=== PATIENT | male | born 1985 | race Caucasian/White ===

== ENCOUNTER 2024-08-06 06:55 | Emergency (ER) | payer OTHER, SELFPAY ==
[2024-08-06 07:08] VITALS: BP 130/85; PULSE 108; RESP 16; TEMP 37; O2SAT 95; BMI 32.3
--- OUTSIDE RECORDS SUMMARY | 2024-08-06 07:35 | XMS_ITS ---
Author Name [facility] Address [address] [place] [address] Care Team Providers Care Bolt Header Name Role Phone JUSTICE PATTERSON Primary Care Provider PHOEBE Delgadillo Primary Care Provider Unavail able Insurance Providers: All historical and current Section Date Range: From patient's date of to the date document was created. This section includes the names of all active insurance providers for the patient. Insurance Provider Type of Coverage Plan Name Start of Policy Coverage End of Policy Coverage Group Number Member ID Insurance Provider's Telephone Number Policy Thompson's Name Patient's Relationship to Policy Thompson BS [place] FEP PREFERRED PROVIDER ORGANIZAT ION (PPO) FEP Oct 03, 2008 [id number] [phone] YUVAL CATALAN PATIENT [employer] PRESCRIPT ION WELLP OINT IP ACT FAM Feb 09, 2023 [id number] YUVAL CATALAN PATIENT [employer] PRESCRIPT ION RX Feb 09, 2023 [id number] [phone] YUVAL CATALAN PATIENT [employer] ([id number]) PRESCRIPT ION FEPRX Aug 12, 2010 [id number] ELVIEYUVAL VELÁSQUEZ PATIENT [employer] ([id number]) PRESCRIPT ION GIC Feb 09, 2018 [id number] [phone] YUVAL CATALAN PATIENT [employer] ([id number]) PRESCRIPT ION [facility] Feb 09, 2018 [id number] YUVAL CATALAN [employer] PREFERRED PROVIDER ORGANIZAT ION (PPO) [facility] * Jun 12, 2016 [id number] YUVAL CATALAN PATIENT UNIC[employer]-G. I.C. PREFERRED PROVIDER ORGANIZAT ION (PPO) [facility] N Feb 09, 2018 [id number] YUVAL CATALAN PATIENT [employer] PREFERRED PROVIDER ORGANIZAT ION (PPO) [facility] Feb 09, 2018 [id number] YUVAL CATALAN PATIENT [employer] PREFERRED PROVIDER ORGANIZAT ION (PPO) [employer] Jun 12, 2016 [id number] YUVAL CATALAN PATIENT [employer] PREFERRED PROVIDER ORGANIZAT ION (PPO) [employer] Jun 12, 2016 [id number] [phone] YUVAL CATALAN PATIENT Selected Encounter This section includes the information on record at [place] for the Encounter. Date/Time Encounter Type Encounter Description Reason Pro vider Source Jun 18, 2024 02:21 PM Outpatient Encounter COMMUNITY CARE CONSULT IHE Encounter Template Text not used by [place] Plan of Treatment: Future Appointments (+ 6 months) and Future Tests (+/- 45 days) The Plan of Treatment section includes future care activities for the patient from all [place] treatmentfacilities. This section includes future appointments and future orders which are active, pending or scheduled. Future Appointments This section includes appointments that were scheduled to occur 6 months from the date of the Encounter, up to a maximum of 20 appointments. The data comes from all [place] treatment facilities. Appointment Date/Time Appointment Type Appointme nt Facility Name Jul 21, 2024 09:29 PM AMBULATORY - MEDICINE [facility] Aug 05, 2024 07:05 PM AMBULATORY - MEDICINE [facility] Aug 06, 2024 01:42 AM [facility] - [facility]ICINE [facility] Social History: Smoking Status (Most current) and Tobacco Use (All prior to encounter date) This section includes the most current, and the historical, smoking and tobacco- related health factors from the [place] facility where the Encounter took place. Current Smoking Status This section includes the most current smoking, or tobacco-related health factor, from the [place] facility where the Encounter took place. Date/Time Current Smoking Status Comment [facility] it Aug 29, 2021 09:00 AM VA-TOBACCO NEVER USED [facility] Tobacco Use History This section includes a history of the smoking, or tobacco-related health factors, that were collected on or before the date of the Encounter. The data comes from the [place] facility where the Encounter took place. Date/Time Smoking Status/Tobac co Use Comment [facility] May 06, 2020 11:00 AM VA-TOBACCO DOESNT USE WI 30 MIN WAKEUP [facility] [place] [facility] May 06, 2020 11:00 AM VA-TOBACCO FORMER USER [facility] [place] [facility] May 06, 2020 11:00 AM VA-TOBACCO QUIT 5 TO < 15 YRS [facility] [place] [facility] May 06, 2020 11:00 AM VA-TOBACCO USE > 15 LESS THAN 30 YEARS [facility] [place] [facility] May 06, 2020 11:00 AM VA-TOBACCO USE ADVICE [facility] [place] [facility] May 06, 2020 11:00 AM 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 [employer] NO [facility] [place] [facility] May 06, 2020 11:00 AM VA-TOBACCO USE MED NO [facility] [place] [facility] May 06, 2020 11:00 AM VA-TOBACCO USER SOME DAYS [facility] [place] [facility] May 07, 2018 10:27 AM CURRENT SMOKER starting smoking again since back on unit- 3-4 cigs/day; plans to stop cold turkey when he returns home [facility] [place] [facility] May 07, 2018 10:27 AM V1-PT DECLINES REF TO TOBACCO CESS PRGM [facility] [place] [facility] May 07, 2018 10:27 AM V1-PT DECLINES TOBACCO CESSATION MEDS [facility] [place] [facility] May 07, 2018 10:27 AM V1-PT READY TO QUIT TOBACCO USE [facility] May 07, 2018 10:27 AM V1-QUIT TOBACCO USE > 1 YEAR AGO [facility] May 05, 2018 12:20 PM TOBACCO INPATIENT NO USE 30 DAYS [facility] May 05, 2018 11:58 AM ORYX ADMIT TOBACCO SCREEN NO [facility] May 07, 2017 09:30 AM CURRENT SMOKER 5 A DAY [facility] May 07, 2017 09:30 AM V1-PT DECLINES REF TO TOBACCO CESS PRGM [facility] May 07, 2017 09:30 AM V1-PT THINKING ABOUT QUIT TOBACCO USE [facility] May 07, 2017 09:30 AM V1-TOBACCO CESS MEDS NOT PRESCRIBED I want to go cold turkey [facility] Mar 11, 2017 11:16 AM TOBACCO INPATIENT DECLINES MEDS [facility] May 15, 2016 10:05 AM QUIT TOBACCO USE > 7 YEARS AGO [facility] January 10, 2012 10:11 AM LIFETIME NON-TOBACCO USER [facility] Sep 26, 2010 10:50 AM QUIT TOBACCO USE > 7 YEARS AGO [facility] Sep 26, 2010 10:50 AM QUIT TOBACCO USE 1-7 YEARS AGO 5+ yrs ago [facility] May 16, 2007 09:50 AM QUIT TOBACCO USE IN PAST YEAR quit 2 mos ago-occasional [facility] Encounter Notes: All associated encounter notes This section contains the clinical notes associated to the Encounter. Date/Time Encounter Note(s) Provider Source Jun 18, 2024 02:21 PM NONVA NOTE: LOCAL TITLE: [facility] PRESENTING CARE COORD PLAN STANDARD TITLE: NONVA NOTE DATE OF NOTE: JUN 18, 2024@14:21 ENTRY DATE: JUN 18, 2024@14:21:19 AUTHOR: YAMILETH JAY EXP COSIGNER: URGENCY: STATUS: COMPLETED Emergency Notification Intake Date Presenting to the Facility: Apr Method of Contact: Notified from ECR worklist Notification ID: [id number] [facility] Referral #: [id number] [facility] Name: Hospital: [facility] Address: City: [place] State: [place] Zip Code: Phone : Community Facility Point of Contact: Name: Linda Phone: Chief complaint: ANXIETY Primary Diagnosis: Disposition Discharged Date of discharge: Apr Discharge to Comment: ER Only /radha/ YAMILETH MOCTEZUMA Signed: 06/18/2024 14:22 Receipt Acknowledged By: 06/24/2024 08:42 /radha/ Pat BELLE,RN,CCM TRANSFER/TRAVELING COORDINATOR YAMILETH JAY RUMSEY
--- OUTSIDE RECORDS SUMMARY | 2024-08-06 07:35 | XMS_ITS | Encounter Summary ---
Author Name [facility] [facility] [place] [facility] [place] Address [address] [place] [address] Care Team Providers Care Chili Maker Name Role Phone JUSTICE PATTERSON Primary Care [...] Thompson's Name Patient's Relationship to Policy Thompson BC BS AR FEP PREFERRED PROVIDER ORGANIZAT ION (PPO) FEP Oct 03, 2008 [id number] VIRAJ CATALAN PATIENT CAR[facility] PRESCRIPT ION WELLP OINT IP ACT FAM Feb 09, 2023 [id number] VIRAJ CATALAN PATIENT [employer] PRESCRIPT ION RX Feb 09, 2023 [id number] ELVIEVIRAJ VELÁSQUEZ PATIENT [employer] ([id number]) PRESCRIPT ION FEPRX Aug 12, 2010 [id number] ELVIEVIRAJ VELÁSQUEZ PATIENT [employer] ([id number]) PRESCRIPT ION GIC Feb 09, 2018 [id number] VIRAJ CATALAN PATIENT [employer] ([id number]) PRESCRIPT ION [facility] Feb 09, 2018 [id number] VIRAJ CATALANARE PREFERRED PROVIDER ORGANIZAT ION (PPO) [facility] * Jun 12, 2016 [id number] [phone] VIRAJ CATALAN PATIENT [employer]. I.C. PREFERRED PROVIDER ORGANIZAT ION (PPO) CARL[facility] N Feb 09, 2018 [id number] VIRAJ CATALAN PATIENT WE[employer] PREFERRED PROVIDER ORGANIZAT ION (PPO) [facility] N Feb 09, 2018 [id number] VIRAJ CATALAN [employer] PREFERRED PROVIDER ORGANIZAT ION (PPO) WE[facility] [employer]INT Jun 12, 2016 [id number] VIRAJ CATALAN PATIENT WE[employer]POINT PREFERRED PROVIDER ORGANIZAT ION (PPO) WE[employer]INT Jun 12, 2016 [id number] [phone] VIRAJ CATALAN PATIENT Selected Encounter This section includes the information on record at [place] for the Encounter. Date/Time Encounter Type Encounter Description Reason Provider Source Jul 21, 2024 09:29 PM EMERGENCY DEPT VISIT MOD [facility] EMERGENCY DEPT ICD-10-CM M25.561 Pain in right knee DIRK VERDIN [facility] Encounter Template Text not used by [place] Assessments - Encounter Diagnoses This section includes the primary and secondary diagnoses documented for the Encounter. Date/Time Primary/Secondary Diagnosis Diagnosis Name Provider Source Jul 21, 2024 10:53 PM PRIMARY Pain in right knee DIRK VERDIN [facility] Plan of Treatment: Future Appointments (+ 6 months) and Future Tests (+/- 45 days) The Plan of Treatment section includes future care activities for the patient from all [place] treatmentfacilities. This section includes future appointments and future orders which are active, pending or scheduled. Future Appointments This section includes appointments that were scheduled to occur 6 months from the date of the Encounter, up to a maximum of 20 appointments. The data comes from all [facility]. Appointment Date/Time Appointment Type Appointme nt Facility Name Aug 05, 2024 07:05 PM AMBULATORY - MEDICINE RAGINI TORRES [facility] Aug 06, 2024 01:42 AM [facility] Active, Pending, and Scheduled Orders This section includes a listing of several types of active, pending, and scheduled orders, including clinic medications orders, diagnostic test orders, procedure orders and consult orders; where the start date of the order is 45 days before the date of the Encounter or 45 days after the date of theEncounter. The data comes from all [facility]. Test Date/Time Test Type Test Details Facility Name Aug 06, 2024 02:18 AM Pharmacy - Clinic Medication Order WILIAN R[facility] Vital Signs: All taken on the encounter date This section contains inpatient and outpatient Vital Signs collected on the date of the Encounter. Date/Time Temperature Pulse Blood Pressure Respiratory Rate SP02 Pain Height Weight Body Mass Index Source Jul 21, 2024 09:41 PM 97.9 104 146/94 14 10 [facility] Encounter Notes: All associated encounter notes This section contains the clinical notes associated to the Encounter. Date/Time Encounter Note(s) Provider Source Jul 21, 2024 10:54 PM NURSING EMERGENCY DEPARTMENT DISCHARGE NOTE: LOCAL TITLE: NURSING PHASE IV MEDICAL ER DISCHARGE NOTE (GT) STANDARD TITLE: NURSING EMERGENCY DEPARTMENT DISCHARGE NOTE DATE OF NOTE: JUL 21, 2024@22:54 ENTRY DATE: JUL 21, 2024@22:54:42 AUTHOR: CAILIN NEVILLE EXP COSIGNER: URGENCY: STATUS: COMPLETED Discharge Date and time: Jul@22:54 Discharged to: Home PATIENT EDUCATION: Education Provided to: Readiness/Motiviation to Learn: Patient Education-Preference for Style of Learning: Barriers to Learning: Language Preferred: Response to Education: (Did Learner understand instruction as evidence by: Ability to repeat significant material: Comment: Ability to ask pertinent questions: Comment: Was education interactive? Comment: Ability to demonstrate skills learned: Comment: Patient/significant other understood instructions: Information provided/handouts provided (List all): Further information needed: Education about medications: Yes Discharge Instructions Given: Yes Patient verbalized understanding of discharge instructions: Yes Clear on responsibilities for ongoing care needs: Yes All IV access devices removed: N/A W-10 sent with patient, if applicable: N/A Patient wristband was removed and destroyed by placing in a secured and locked Personal Health Information (PHI) receptacle for shredding. /emmanuelle NEVILLE RN REGISTERED NURSE Signed: 07/21/2024 22:55 CAILIN NEVILLE [facility] Jul 21, 2024 10:52 PM NURSING NOTE: LOCAL TITLE: NURSING NOTE STANDARD TITLE: NURSING NOTE DATE OF NOTE: JUL 21, 2024@22:52 ENTRY DATE: JUL 21, 2024@22:52:35 AUTHOR: CAILIN NEVILLE EXP COSIGNER: URGENCY: STATUS: COMPLETED 2250: Patient ready for discharge. NO PIV in place, ID band removed. Discharge instuctions and outpatient medications provided. /emmanuelle NEVILLE RN REGISTERED NURSE Signed: 07/21/2024 22:54 JAMINCAILIN [facility] Jul 21, 2024 10:37 PM EMERGENCY DEPT DIS CHARGE NOTE: LOCAL TITLE: EMERGENCY DEPARTMENT/URGENT CARE DISCHARGE INSTRUCT STANDARD TITLE: EMERGENCY DEPT DISCHARGE NOTE DATE OF NOTE: JUL 21, 2024@22:37 ENTRY DATE: JUL 21, 2024@22:38:24 AUTHOR: DIRK VERDIN EXP COSIGNER: URGENCY: STATUS: COMPLETED Emergency Department Discharge Instructions For: Viraj Catalan ON JUL 21, 2024 Diet Resume your usual diet. Activities Normal activities as tolerated. Medications Active Outpatient Medications (excluding Supplies): Active Outpatient Medications Status 1) OXYCODONE HCL 5MG TABLET TAKE ONE OR TWO TABLETS(5MG OR ACTIVE 10MG) BY MOUTH EVERY 8 HOURS NEEDED *THESE ARE SHORT ACTING TABS* Indication: FOR PAIN Active Non-VA Medications Status 1) Non-VA PRAZOSIN HCL 1MG CAP 3MG MOUTH AT BEDTIME ACTIVE 2 Total Medications Continue all of your medications a prescribed. A list of your current active medications can be provided. Additional Instructions Return to this or a local emergency department if any significant new symptoms of concern develop. CALL 911 FOR: Chest pain, Loss of consciousness, Sudden shortness of breath Contact your medical provider or return if: Fever 101.5 or higher,Dizziness or light-headedness Nausea, vomiting, diarrhea, or no bowel movement for more than 48 hrs Changes in behavior If your current problem persists for more than 48hrs New onset headache Redness, discharge, warm to the touch or foul smelling discharge from wound Additional follow up: Preprinted Instruction Sheet Follow up We recommend a follow up visit for recheck in 3-5 days. Primary Care Urgent Visit: Contact the Call Center today at [phone] for an appointment with PCMM Primary Provider: PCMM Team: Or Return to the Triage Clinic open Saturday through Saturday 8:30 a.m. to 4:30 p.m. (No appointment is necessary). No data available If you have received sedating medications such as narcotic pain killers, anxiety medications, certain anti-vomiting and anti-allergy medications, you should not drive or operate machinery or appliances for several hours after your last dose. Your doctor today Diagnosis: Chronic pain right knee, history of ACL tear, meniscus tear [facility] SEDATION: Patient did not receive sedation during his/her procedure DIRK VERDIN [facility] Jul 21, 2024 10:12 PM ACCOUNTING OF DISC LOSURES NOTE: LOCAL TITLE: STATE PRESCRIPTION DRUG MONITORING PROGRAM STANDARD TITLE: ACCOUNTING OF DISCLOSURES NOTE DATE OF NOTE: JUL 21, 2024@22:12:43 ENTRY DATE: JUL 21, 2024@22:12:43 AUTHOR: DIRK VERDIN EXP COSIGNER: URGENCY: STATUS: COMPLETED This PDMP query was submitted by Dirk Verdin MD. The clinical justification for this PDMP query is to review controlled substances prescribed outside of the [facility], and any additional information that may become available, as an important component of standard clinical care, and in accordance with [facility] policy. Patient information was shared with the PDMP [place]. Prescription(s) filled outside the [facility] in the last 90 days are noted. Safety concerns will be discussed with the patient and documented as part of ongoing treatment planning. Discussed with patient the potential for abuse, and patient claims that he is following up with surgery next , and has had to increase his dose due to recent injury. Patient was prescribed a limited amount, and encouraged to follow-up prompt /radha/ DIRK VERDIN MD Signed: 07/21/2024 22:13 DIRK VERDIN [facility] Jul 21, 2024 09:38 PM EMERGENCY DEPT TRI AGE NOTE: LOCAL TITLE: EMERGENCY DEPT TRIAGE NOTE STANDARD TITLE: EMERGENCY DEPT TRIAGE NOTE DATE OF NOTE: JUL 21, 2024@21:38 ENTRY DATE: JUL 21, 2024@21:38:45 AUTHOR: CAILIN NEVILLE EXP COSIGNER: URGENCY: STATUS: COMPLETED Emergency Department/Urgent Care Center Triage Patient age:39 Sex: MALE On arrival patient was: AMBULATORY Patient phone number: PATIENT PHONE Allergies: Patient has answered NKA Subjective/Chief Complaint: right knee pain Objective: Patient c/o re-injury to RIGHT knee. Patient states he was at a holiday democr[place] and a child jumped on his knee. Patient states he has surgery scheduled in [place] for affected knee. Patient states knee is swollen and painful to touch. Patient denies falls KINDER 1 Fall Risk Screen If any of the below answers are YES, patient is deemed HIGH FALL RISK Presented to Emergency Department because of falls? No Age greater than 70? No Altered mental status? -- No Impaired mobility? -- No Nurse Judgment: -- The patient is not a fall risk. Vital Signs * Temperature 97.9 F (36.6 C) Pulse 104 Respirations 14 Blood Pressure 146/94 Pain scale recorded: 10 Pulse Oximetry 97 Room Air Emergency Severity Index (ERNESTO) level Level 4 Current Medications: Active Outpatient Medications (excluding Supplies): Active Non-VA Medications Status 1) Non-VA PRAZOSIN HCL 1MG CAP 3MG MOUTH AT BEDTIME ACTIVE Current Problems: ACTIVE PROBLEMS Suicide Screen: The patient was unable to answer. Comment: C-SSSR completed and negative Are two or more of the following present in addition to a suspected source of infection? Respirations greater than or equal to 22 breaths per minute Altered mental status Systolic Blood Pressure less than or equal to 100 mm Hg No-Sepsis Screen is negative /radha/ CAILIN NEVILLE RN REGISTERED NURSE Signed: 07/21/2024 21:47 CAILIN NEVILLE [facility] Jul 21, 2024 09:35 PM ATTENDING EMERGENC Y DEPT NOTE: LOCAL TITLE: EMERGENCY DEPARTMENT/URGENT CARE ATTENDING EVALUATI STANDARD TITLE: ATTENDING EMERGENCY DEPT NOTE DATE OF NOTE: JUL 21, 2024@21:35 ENTRY DATE: JUL 21, 2024@21:35:45 AUTHOR: DIRK VERDIN COSIGNER: URGENCY: STATUS: COMPLETED Viraj Catalan is a 39 year old MALE who presents for evaluation of: Right knee pain COMES TO ED VIA ambulatory 9 hrs., seen by me at 2136 hrs. CC: Patient c/o re-injury to RIGHT knee. Patient states he was at a holiday democr[place] and a child jumped on his knee. Patient states he has surgery scheduled in [place] for affected knee. Patient states knee is swollen and painful to touch. 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 Patient states that he has had multiple MRIs which have reflected that he has an ACL tear and meniscus tear. He also thinks that he had a lateral collateral ligament tear. Patient is walking with crutches. 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 Patient has been taking narcotics x 1-1/2 years. Patient states he is scheduled in [place] to have surgery next week. Patient lives in [facility], and is visiting family in [facility] [place] [facility]. Patient states that he was at a holiday democrat on Saturday, when his 6-year-old son jumped onto his knee and aggravated his right knee pain. Patient was regularly prescribed oxycodone states that he increased his dose and has run out of oxycodone. Patient is requesting a medication refill. Patient denies any fever, cough, nausea, vomiting, diarrhea, burning on urination or any acute rash. ROS: General:( - )fatigue/ malaise/( - ) fever Head:( -) headaches ( - ) head congestion Eye: (- ) visual problems Ears: ( - ) ear pain Throat:( - ) sore throat Lungs:( - ) cough ( - ) shortness of breath Heart: ( - ) chest pain ( - ) palpitations Abdomen:( - ) abdominal pain ( - ) n,v,d Urologic:( - ) dysuria Back: ( - ) pain Extremities: ( + ) edema or pain Neurologic: ( - ) paresthesia or weakness Hematologic: ( - ) excessive bruising or bleeding Skin:( - ) new rash or lesions Endocrine: ( - )thyroid ( - )diabetes Psychiatric:( - ) depression or anxiety SH: Patient denies smoking, drinking or using any illegal drugs. Patient states he is , has 2 children. Patient works for [employer] in [place]. 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 Patient deployed to [employer] [facility] in 2001, [employer] in 2008. 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 PMH : Code Description E66.8 Obesity ([facility] [id number]) G44.329 Chronic post-traumatic headache ([facility] [id number]) MEDS: Active Outpatient Medications (excluding Supplies): Active Non-VA Medications Status 1) Non-VA PRAZOSIN HCL 1MG CAP 3MG MOUTH AT BEDTIME ACTIVE ALLERGIES Patient has answered NKA PHYSICAL EXAM Vital Signs * Temperature 97.9 F (36.6 C) Pulse 104 Respirations 14 Blood Pressure 146/94 Pain scale recorded: 10 Pulse Oximetry 97 Room Air GEN APPEARANCE Well Developed, appropriate for Age, comfortable HEENT Non Traumatic, Normal Cephalic, No Adenapathy, Mucous Membranes moist NECK No Meingismus, Midline Trachea, no JVD, No Significant Adenapathy LUNGS Clear to Auscultation, no Rales, no Rhonchi, no wheezes CARD S1 S2 Regular rythem and rate, no murmurs ABD Soft, Non Tender, No masses, no organomegally, normal bowel sounds, no CVAT EXT patient's right knee is swollen as compared to the left, knee is not warm to palpation. NEURO No focal neuro deficits, alert and oriented to person place and time, normal pleasant social interaction LAB RESULTS PDMP query was performed, patient has extensive prescriptions for narcotics. Patient is credibly describing increased pain secondary to minor injury, and states that he is scheduled for appointment in 1 week. Patient is visiting family in [place], and patient is originally from [place]. Patient is requesting 30 tablets of 10 mg oxycodones. In consultation with pharmacy I prescribed 30 tablets of 5 mg oxycodones and encourage patient to follow-up with PCP. Patient describes withdrawal symptoms if he does not take narcotics. I explained to patient that he is developing a tolerance and dependence on narcotic analgesics. Patient states he will follow-up promptly with his orthopedic surgeon in [place]. IMPRESSION: Right knee pain chronic DISPOSITON: Discharged home CONDITION ON DISPOSITION : Improved /es/ DIRK VERDIN MD Signed: 07/21/2024 23:43 DIRK VERDIN [facility]
--- OUTSIDE RECORDS SUMMARY | 2024-08-06 07:36 | XMS_ITS | Encounter Summary ---
Author Name [facility] [place] [facility] [place] [facility] [place] Address [address] [place] [address] Care Team Providers Care Consular Officer Name Role Phone JUSTICE PATTERSON Primary Care [...] ION (PPO) FEP Oct 03, 2008 [id number] [phone] YUVAL CATALAN PATIENT CAREMARK PRESCRIPT ION WELLP OINT IP ACT FAM Feb 09, 2023 [id number] YUVAL CATALAN PATIENT CAREMARK PRESCRIPT ION RX Feb 09, 2023 [id number] [phone] YUVAL CATALAN PATIENT CAREMARK ([id number]) PRESCRIPT ION FEPRX Aug 12, 2010 [id number] [phone] ELVIEYUVAL VELÁSQUEZ PATIENT [facility] ([id number]) PRESCRIPT ION GIC Feb 09, 2018 [id number] [phone] YUVAL CATALAN PATIENT [facility] ([id number]) PRESCRIPT ION [facility] Feb 09, 2018 [id number] YUVAL CATALANARE PREFERRED PROVIDER ORGANIZAT ION (PPO) [facility] * Jun 12, 2016 [id number] [phone] YUVAL CATALAN PATIENT [facility]-G. I.C. PREFERRED PROVIDER ORGANIZAT ION (PPO) [facility] N Feb 09, 2018 [id number] YUVAL CATALAN PATIENT WELLPOINT PREFERRED PROVIDER ORGANIZAT ION (PPO) [facility] N Feb 09, 2018 [id number] [phone] YUVAL CATALAN PATIENT WELLPOINT PREFERRED PROVIDER ORGANIZAT ION (PPO) WELLP OINT Jun 12, 2016 [id number] [phone] YUVAL CATALAN PATIENT WELLPOINT PREFERRED PROVIDER ORGANIZAT ION (PPO) WELLP OINT Jun 12, 2016 [id number] [phone] YUVAL CATALAN PATIENT Selected Encounter This section includes the information on record at [place] for the Encounter. Date/Time Encounter Type Encounter Description Reason Provider Source Aug 05, 2024 07:05 PM EMERGENCY DEPT VISIT [facility] EMERGENCY DEPT ICD-10-CM M25.561 Pain in right knee MIGUEL ANGEL YEE [facility] Encounter Template Text not used by [place] Assessments - Encounter Diagnoses This section includes the primary and secondary diagnoses documented for the Encounter. Date/Time Primary/Secondary Diagnosis Diagnosis Name Provider Source Aug 05, 2024 09:17 PM PRIMARY Pain in right knee MIGUEL ANGEL YEE [facility] Plan of Treatment: Future Appointments (+ 6 months) and Future Tests (+/- 45 days) The Plan of Treatment section includes future care activities for the patient from all [facility] treatmentfacilities. This section includes future appointments and future orders which are active, pending or scheduled. Future Appointments This section includes appointments that were scheduled to occur 6 months from the date of the Encounter, up to a maximum of 20 appointments. The data comes from all [facility]. Appointment Date/Time Appointment Type Appointme nt Facility Name Aug 06, 2024 01:42 AM AMBULATORY - MEDICINE [facility] Active, Pending, and Scheduled Orders This section includes a listing of several types of active, pending, and scheduled orders, including clinic medications orders, diagnostic test orders, procedure orders and consult orders; where the start date of the order is 45 days before the date of the Encounter or 45 days after the date of theEncounter. The data comes from all [facility]. Test Date/Time Test Type Test Details Facility Name Aug 06, 2024 02:18 AM Pharmacy - Clinic Medication Order [facility] Vital Signs: All taken on the encounter date This section contains inpatient and outpatient Vital Signs collected on the date of the Encounter. Date/Time Temperature Pulse Blood Pressure Respiratory Rate SP02 Pain Height Weight Body Mass Index Source Aug 05, 2024 09:01 PM 101 131/88 16 96 10 [facility] Aug 05, 2024 08:03 PM 10 [facility] Aug 05, 2024 07:31 PM 10 [facility] Aug 05, 2024 07:23 PM 97.1 111 151/98 16 97 10 [facility] Encounter Notes: All associated encounter notes This section contains the clinical notes associated to the Encounter. Date/Time Encounter Note(s) Provider Source Aug 05, 2024 08:41 PM EMERGENCY DEPT DIS CHARGE NOTE: LOCAL TITLE: Emergency Dept Discharge Instructions STANDARD TITLE: EMERGENCY DEPT DISCHARGE NOTE DATE OF NOTE: AUG 05, 2024@20:41 ENTRY DATE: AUG 05, 2024@20:41:33 AUTHOR: RADHA YEE EXP COSIGNER: URGENCY: STATUS: COMPLETED DISCHARGE INSTRUCTIONS FOR: MR. YUVAL CATALAN [address] [place], [place] [address] AUG 05, 2024 YOUR DIAGNOSIS: Chronic knee pain and chronic oxycodone use TREATMENT YOU RECEIVED IN THE EMERGENCY DEPARTMENT: You are given ibuprofen RESULTS: The PDMP was reviewed. It looks like you have been receiving your 10 mg oxycodones at the [facility] pharmacy in [facility]. He received 84 tablets on July 24 and 63 tablets on July 03. He also had an ER visit on July 21 at which time he received 30 of the 5 mg oxycodone tablet TREATMENT INSTRUCTIONS UPON DISCHARGE FROM THE EMERGENCY DEPARTMENT, INCLUDING INSTRUCTIONS FOR MEDICATIONS: Ibuprofen 800 mg up to every 8 hours. Famotidine 20 mg twice a day You are being prescribed a total of 4 oxycodone 5 mg tablets. These are primarily being given to make sure you do not go into withdrawal as well as to manage your pain. It is felt by this provider that you need to talk to your doctors about getting off opiates for chronic pain. You also need to have the surgery done as soon as possible. It is strongly recommended that you contact your prescribing providers and your orthopedic surgeon tomorrow August 06 ACTIVE MEDICATIONS: Active Outpatient Medications (excluding Supplies): Pending Outpatient Medications Status = 1) FAMOTIDINE 20MG TAB TAKE ONE TABLET BY MOUTH TWICE A DAY PENDING Indication: FOR GASTROESOPHAGEAL REFLUX DISEASE 2) IBUPROFEN 800MG TAB TAKE ONE TABLET BY MOUTH THREE TIMES PENDING DAILY NEEDED Indication: FOR PAIN 3) OXYCODONE 5MG TAB TAKE ONE TABLET BY MOUTH THREE TIMES DAILY PENDING NEEDED Indication: FOR PAIN INSTRUCTIONS FOR FOLLOW UP: As above A copy of these instructions was given to the patient and/or caregiver. The instructions were reviewed with the patient and/or caregiver. The patient and/or caregiver showed understanding of the instructions before discharge from the Emergency Department. TREATING PHYSICIAN: RADHA YEE MD EMERGENCY DEPARTMENT BUSINESS LEADER SCHEDULED FUTURE APPOINTMENTS: No Future Appointment During normal business hours Saturday-Saturday 8-4 PM: If you have any problems, your contact lens fitter or a doctor can be reached by calling the telephone advice line at: (p) [phone], ext. [phone] Toll-free (P) [phone] ext. [phone] If you are a in crisis, free confidential support is available 04/03. To access, call the [employer] Crisis Line by dialing 362 and press 1. You may also text [phone] or start an online chat session at [email or web address] Crisis support for the deaf and hard of hearing can be reached by using your preferred relay service or dial 319 then 848. /es/ RADHA YEE MD EMERGENCY DEPARTMENT BUSINESS LEADER Signed: 08/05/2024 20:44 RADHA YEE [facility] Aug 05, 2024 08:13 PM EMERGENCY DEPT NOT E: LOCAL TITLE: ED MD Note/Emergency Department Physician Note STANDARD TITLE: EMERGENCY DEPT NOTE DATE OF NOTE: AUG 05, 2024@20:13 ENTRY DATE: AUG 05, 2024@20:13:14 AUTHOR: RADHA YEE EXP COSIGNER: URGENCY: STATUS: COMPLETED ED MD Note/Emergency Department Physician Note Has ADDENDA AUG 05, 2024 YUVAL CATALAN is a 39 year old presents with hopes of having his narcotic prescription refilled for management of his right knee pain. Patient states he injured his right knee while working for the [employer] about a year and a half ago when he fell and twisted the knee. He states has had multiple MRIs that show an ACL and meniscal injury. Patient states has been seen by orthopedic senior clinical consultant who is recommended surgical correction. Patient tells me that this does not happen due to a disagreement between Workmen's Comp. and his third-constitution party insurance who will pay for this. Patient is now involved a director of primary care. In the meantime he has managed his pain with narcotics. He states he has been taking oxycodone 10 mg 3 times a day. Patient is currently visiting family and is run out of his narcotics.. He states that he decided he did not need his rest of his narcotics and threw them away. Patient states that since he has not been taking his oxycodone over the last 24 hours he is developed severe pain in the right knee. States is unable to take Tylenol and has not taken NSAIDs. Presents here with hopes of having a refill on his narcotic prescription until he can be seen by his orthopedist next Saturday, 5 days from now. Patient denies any recent fall or trauma in the last 2 weeks PAST MEDICAL HISTORY Problem List - Active - NONE FOUND PAST SURGICAL HISTORY MEDICATIONS Active Outpatient Medications (excluding Supplies): No Medications Found ALLERGIES TYLENOL AUG 05, 2024 (historical) Symptoms: ANAPHYLAXIS ROS No fevers. VITALS BP: 151/98 (08/05/2024 19:23) Pulse: 111 (08/05/2024 19:23) Temp: 97.1 F [36.2 C] (08/05/2024 19:23) Resp: 16 (08/05/2024 19:23) HT(in): WT(lbs): 08/05/24 @ 1923 PULSE OXIMETRY: 97 Vital Signs:I have reviewed the vital signs General -alert oriented no distress. Patient presents alone Head: atraumatic, normocephalic. Eyes: Pupils equally round and reactive. Extra ocular muscles intact. Sclera white. No nystagmus. MSK -patient is unable to put his right knee through full range of motion with limited flexion extension. There are some mild diffuse swelling about the right knee. No tenderness over the thigh or distal to the knee. Vascular: 2+ dorsalis pulse. Cap refill less than 2 seconds neuro -alert and oriented x3. Skin - no rash Psych - appropriate mood and affect MANAGEMENT COURSE IN THE ED -Patient examined and assessed by me -Vital signs reviewed Patient did not have any records available on [facility] as this is his first visit to [place]. I was able to look up his records in senior living [facility]. I also was able to look up the patient's records through the PDMP. Looks like he was prescribed 8410 mg tablets of oxycodone through the [facility] in [facility] on 24 July. He had 35 mg tablets prescribed through the the [facility] on 07/21. MEDICAL DECISION MAKIN-year-old gentleman history of knee injury over a year ago with apparent underlying meniscal and ligamentous injury to his right knee has been managed with narcotics for the last year. Tells me that an orthopedic surgeon in [place] wants to surgically repair his injury but this been a problem with insurance. I was able to with the help of a colleague to look through the PDMP as well as senior living [facility]. Patient has been receiving large doses of narcotics. Looks like on 24 July he received 8410 mg tablets from [facility] in [facility]. Prior to that on July 03 he received 6310 mg oxycodone tablets at the same pharmacy. And on July 21 he presented to the [facility] ED after minor knee trauma and received additional 30 tablets of 5 mg oxycodone. Patient states while visiting family up here and drinking too many egg nuggets he had a moment of poor judgment and threw away his remaining oxycodone that would have gotten through the rest the week. Is now [place] evening. I cannot reach out to the patient's providers in [place]. Initially I was inclined not to prescribe him any narcotics. Patient states that he has been taking narcotics for better part of a year and that he is on certainly going withdrawal. Although does not show any outward signs of withdrawal and can see that this is a possibility. For this reason I am prescribing a total of 4 oxycodone 5 mg tablets. Patient's to follow-up with his prescribers and orthopedic surgeon tomorrow. Additionally, I will prescribe ibuprofen 800 mg every 8 hours. Patient states he is run out of his prescription for famotidine and will be sent home with 2-week supply famotidine as well. DIAGNOSIS: 1. Chronic right knee pain 2. Chronic opiate pain medications for right knee pain The following note has been dictated using [employer] Naturally Speaking. It has been proofread, but there may be errors due to the dictations software. PERSONAL PROTECTIVE EQUIPMENT (PPE): This provider used appropriate PPE during every encounter with the patient. /radha/ RADHA YEE MD EMERGENCY DEPARTMENT BUSINESS LEADER Signed: 08/05/2024 20:41 08/06/2024 ADDENDUM STATUS: COMPLETED 238- This RN received call from pharmacist (Federico) at [facility] stating that pt had presented to [facility] ED for CC of right knee pain and requesting Oxycodone. Rsihabh Caballero states that when he and the [facility] ED MD reviewed the patient's chart and saw that pt had been given Rx Oxycodone at the [facility] ED they informed the pt that he would not be getting more Oxycodone to which the pt reported to Pharmacist that he left [facility] AMA and did not get any medications before leaving. This RN confirmed that pt did receive d/c instructions as well as discharge medications, including Oxycodone. Rishabh Caballero thanks this author and call ended at this time. 304- This RN received second call from Rishabh Caballero from [facility]. Rishabh Caballero states pt now reports that he threw the medication bag at this RN and left the [facility] ED without medications. This RN reviewed with Rishabh Caballero that as per this RN's note pt received discharge instructions and medications and ambulated from ED wishing this RN a Jael West. Rishabh Caballero thanks this author and call ended at this time. /radha/ JF ALDANA registered nurse Signed: 08/06/2024 03:17 RADHA YEE [facility] Aug 05, 2024 08:02 PM NURSING EMERGENCY DEPT NOTE: LOCAL TITLE: ED RN NOTE/EMERGENCY DEPARTMENT NOTE STANDARD TITLE: NURSING EMERGENCY DEPT NOTE DATE OF NOTE: AUG 05, 2024@20:02 ENTRY DATE: AUG 05, 2024@20:02:52 AUTHOR: JF ALDANA EXP COSIGNER: URGENCY: STATUS: COMPLETED Full ED Note Documentation System Review: * Falls Patient greater than 70 years old? No *Pain Assessment Pain Details: Level of pain: 10 Location of pain: knee Pain Description: Medications received: Response to meds: Other therapies utilized to relieve pain: rest, positioning Comment: Effectiveness: Pt denies pain improving with rest and positioning Neurological: Alert: Yes Oriented to: person: Yes place: time: Yes situation: Yes Extremities: Normal/Warm/Dry: Yes List all injuries, including location, severity and interventions: Pt ambulates independently, without crutch, in ED room 3. Pt ambulates longer distances with single crutch. Pt presents to ED for 1.5 years of right knee pain that is worse recently- pt denies known trauma. Pt ambulates with single crutch. Pt reports that he has pain medication but doesn't like taking it but also can't afford to have surgery on the knee. Pt declines offer for ice pack. 1919- Dewey Yee ED in pt room speaking with pt. 1944- MD Yee in pt room speaking with pt. 1952- 800mg Ibuprofen given to pt per ED MD order; see BCMA. Pt reports pain level 10/10. 1999- Pt declines to wait in ED. Pt ambulates out to parking lot stating he needs fresh air. ED MD Yee present at time of pt stating this and exiting. 2024- Pt ambulates back in to ED entrance with crutch. Pt speaking with MD Yee. 2029- Pt declines to wait in ED, declines repeat VS. Pt ambulates out to ED parking lot with crutch. ED MD made aware of pt exiting building by this RN. 2099- Pt ambulates with crutch back into ED. Pt ambulates into ED room 1; declines to go back to room 3. D/C instructions reviewed with pt by this RN; pt verbalizes understanding to all instructions. Pt verbalizes that something in the discharge paperwork isn't right. Pt declines to speak to this RN about his concern. Pt requesting to speak with MD Yee however MD Yee gone for the night. This RN offered to have incoming MD speak with pt; pt agrees. 2104- ED MD Jairon Avilez in pt room speaking with pt. 2114- Pt given information to reach patient advocate by MD Avilez. 2119- Pt given d/c medications from pharmacy. Pt ambulates from ED with all personal belongings, d/c instructions and d/c medications. /radha/ JF ALDANA registered nurse Signed: 08/05/2024 21:[address] 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 Reports 12/10 pain that has been getting worse throughout the day. 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 Pt had an accident at work about 1.5 years ago and his workers comp will not cover it, nor will his insurance. Denies reinjury or trauma recently and Reports that the pain is because he hasn't taken his pain meds (Last does of oxy and muscle relaxer was taken at noon today). Pt states that he has been trying not to take his meds because he doesn't like to take them . VSS. Pt does not appear to be in any distress- pt ambulated with one crutch to bed 3. Level of Consciousness (AVPU): Alert = Appears aware of and responsive to the environment on their own. Follows commands, opens eyes spontaneously, and tracks objects. Vital Signs: Vital signs previously recorded this visit: DATE/TIME TEMP PULSE RESP BP PAIN WEIGHT 08/05/24 @ 1923 97.1 111 16 151/98 10 Pain: DVPRS Scale Location: Right knee Defense and Veterans Pain Rating Scale (DVPRS): 10 As bad as it can be, nothing else matters Pain Score: 10 Patient's acceptable pain goal: Suicide Screen: [place] Suicide Severity Rating Scale (C-SSRS) screener 1. Over the past month, have you wished you were or wished you could go to sleep and not wake up? No 2. Over the past month, have you had any actual thoughts of killing yourself? No 3. Over the past month, have you been thinking about how you might do this? Response not required due to responses to other questions. 4. Over the past month, have you had these thoughts and had some intention of acting on them? Response not required due to responses to other questions. 5. Over the past month, have you started to work out or worked out the details of how to kill yourself? Response not required due to responses to other questions. 6. If yes, at any time in the past month did you intend to carry out this plan? Response not required due to responses to other questions. 7. In your lifetime, have you ever done anything, started to do anything, or prepared to do anything to end your life (for example, collected pills, obtained a gun, gave away valuables, went to the roof but didn't jump)? No 8. If YES, was this within the past 3 months? Response not required due to responses to other questions. Emergency Severity Index (ERNESTO) level: Level 3 Previously documented allergies: No Allergy Assessment Current Problems: No Active Problems on record /es/ JETT JUARES Registered Nurse Signed: 08/05/2024 19:41 JETT JUARES [facility]
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
--- OUTSIDE RECORDS SUMMARY | 2024-08-06 07:37 | XMS_ITS | Encounter Summary ---
Author Name [facility] [place] [place] [facility] [place] Address [address] [place] [address] Care Team Providers Care Brick Tender Name Role Phone JUSTICE PATTERSON Primary Care [...] ION (PPO) FEP Oct 03, 2008 [id number] YUVAL CATALAN PATIENT CAREMARK PRESCRIPT ION RX Feb 09, 2023 [id number] YUVAL CATALAN CAR[facility]ARK PRESCRIPT ION WELLP OINT IP ACT FAM Feb 09, 2023 [id number] [phone] YUVAL CATALAN PATIENT CAREMARK ([id number]) PRESCRIPT ION FEPRX Aug 12, 2010 [id number] YUVAL CATALAN PATIENT [facility] ([id number]) PRESCRIPT ION GIC Feb 09, 2018 [id number] YUVAL CATALAN PATIENT [facility] ([id number]) PRESCRIPT ION [facility] Feb 09, 2018 [id number] YUVAL CATALAN PATIENT [employer] PREFERRED PROVIDER ORGANIZAT ION (PPO) [facility] * Jun 12, 2016 [id number] YUVAL CATALAN PATIENT [facility]-G. I.C. PREFERRED PROVIDER ORGANIZAT ION (PPO) [facility] IN[facility] N Feb 09, 2018 [id number] [id number] YUVAL CATALAN PATIENT WE[facility]POINT PREFERRED PROVIDER ORGANIZAT ION (PPO) [facility] IN[facility] N Feb 09, 2018 [id number] YUVAL CATALAN PATIENT WELLPOINT PREFERRED PROVIDER ORGANIZAT ION (PPO) [facility] Jun 12, 2016 [id number] [phone] YUVAL CATALAN PATIENT WELLPOINT PREFERRED PROVIDER ORGANIZAT ION (PPO) [facility] Jun 12, 2016 [id number] YUVAL CATLAAN PATIENT Selected Encounter This section includes the information on record at [place] for the Encounter. Date/Time Encounter Type Encounter Description Reason Provider Source Aug 06, 2024 02:14 AM Outpatient Encounter EVENT (HISTORICAL) ROSSY DURHAM Encounter Template Text not used by [place] Plan of Treatment: Future Appointments (+ 6 months) and Future Tests (+/- 45 days) The Plan of Treatment section includes future care activities for the patient from all VA treatmentfacilities. This section includes future appointments and future orders which are active, pending or scheduled. Active, Pending, and Scheduled Orders This section includes a listing of several types of active, pending, and scheduled orders, including clinic medications orders, diagnostic test orders, procedure orders and consult orders; where the start date of the order is 45 days before the date of the Encounter or 45 days after the date of theEncounter. The data comes from all [place] treatment facilities. Test Date/Time Test Type Test Details Facility Name Aug 06, 2024 02:18 AM Pharmacy - Clinic Medication [facility]
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
--- OUTSIDE RECORDS SUMMARY | 2024-08-06 07:37 | XMS_ITS | Encounter Summary ---
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 Name Role Phone JUSTICE PATTERSON Primary Care [...] ION (PPO) FEP Oct 03, 2008 [id number] [phone] YUVAL CATALAN PATIENT [facility] PRESCRIPT ION WELLP OINT IP ACT FAM Feb 09, 2023 [id number] YUVAL CATALAN PATIENT [facility] PRESCRIPT ION RX Feb 09, 2023 [id number] [phone] ELVIEYUVAL VELÁSQUEZ PATIENT CAR[facility]ARK ([id number]) PRESCRIPT ION FEPRX Aug 12, 2010 [id number] YUVAL CATALAN PATIENT [facility] ([id number]) PRESCRIPT ION GIC Feb 09, 2018 [id number] [phone] YUVAL CATALAN PATIENT [facility] ([id number]) PRESCRIPT ION [facility] Feb 09, 2018 [id number] YUVAL CATALAN PATIENT CORTEZARE PREFERRED PROVIDER ORGANIZAT ION (PPO) [facility] * Jun 12, 2016 [id number] YUVAL CATALAN PATIENT [facility]-G. [facility].C. PREFERRED PROVIDER ORGANIZAT ION (PPO) [facility] N Feb 09, 2018 [id number] YUVAL CATALAN PATIENT WELLPOINT PREFERRED PROVIDER ORGANIZAT ION (PPO) [facility] N Feb 09, 2018 [id number] YUVAL CATALAN PATIENT WE[facility]POINT PREFERRED PROVIDER ORGANIZAT ION (PPO) [facility] Jun 12, 2016 [id number] [id number] YUVAL CATALAN PATIENT [facility] PREFERRED PROVIDER ORGANIZAT ION (PPO) [facility] Jun 12, 2016 [id number] YUVAL CATALAN PATIENT Selected Encounter This section includes the information on record at [place] for the Encounter. Date/Time Encounter Type Encounter Description Reason Provider Source Aug 06, 2024 01:42 AM Outpatient Encounter EVENT (HISTORICAL) ROSSY DURHAM [...] of theEncounter. The data comes from all [place] treatment facilities. Test Date/Time Test Type Test Details Facility Name Aug 06, 2024 02:18 AM Pharmacy - Clinic Medication Order [facility] Encounter Notes: All associated encounter notes This section contains the clinical notes associated to the Encounter. Date/Time Encounter Note(s) Provider Source Aug 06, 2024 02:14 AM EMERGENCY DEPT DIS CHARGE NOTE: LOCAL TITLE: IND ER DISPOSITION NOTE (T/O) TEAM STANDARD TITLE: EMERGENCY DEPT DISCHARGE NOTE DATE OF NOTE: AUG 06, 2024@02:14:34 ENTRY DATE: AUG 06, 2024@02:14:34 AUTHOR: KOFI DURHAM: URGENCY: STATUS: COMPLETED DISCHARGE INSTRUCTIONS IMPORTANT: We examined and treated you today on an emergency basis only. This was not a substitute for, or an effort to provide, complete medical care. In most cases, you must let your healthcare provider check you again. Tell your healthcare provider about any new or lasting problems. We cannot recognize and treat all injuries or illnesses in one Emergency Department visit. After you leave, you should follow the instructions below. ---- VISIT NOTES ---- Test Results: If you have any outstanding tests from the emergency department, please contact your assigned Primary Care Team to review them in the next 3-5 days. ---- CONTACT INFORMATION ---- -Hospital Information: [address] [address] -CRISIS Line: Connect with the [facility] Crisis Line to reach caring, qualified responders with the [facility]. Many of them are Veterans themselves. Call the VA Crisis line at 218 and Press 1 -Primary Care Center -Direct: [phone] ([phone]) -Medication refills: or [phone] -Mental health care: If you need help right away, or if you have a referral from another [place] provider, one of our counselors will see you the same day. Same-day mental health and psychiatric help is available for both new and established patients. Call the Behavioral Health Care Line at [phone] to make an appointment. [facility] (CCC) [place] is launching a new virtual modality to create additional access for you, our Veterans, called [place] [employer]. [place] [facility] [facility] elevates our call centers to Clinical Contact Centers (CCC) offering 4 virtual core services 24 hours a day / 7 days a week, including: -Speaking to a Nurse to discuss symptoms, concerns, and receive recommendations for health care needs -Virtual Visits with a Medical Provider by phone or video to discuss healthcare needs in detail -Medication Assistance to refill and renew prescriptions and to ask medication-related questions -Make and Change Primary Care Appointments and receive additional information about VA services You can reach our dedicated team at and receive the Right Care, Right Now! ---- FOLLOW UP CARE INFORMATION ---- We do not anticipate you will require any follow-up care as a result of your treatment today.Contact your Primary Care Team if you feel you need to be seen again because you are experiencing new symptoms, feel worse, or are not getting better as discussed. Future Appointments [none] ---- This Information Is About Your Illness and Diagnosis ---- ALLERGIC REACTION The immune system is the body's own defense system that helps fight infections. It attacks viruses and bacteria. An allergic reaction occurs when the immune system overreacts and attacks a normal substance, such as pollen, certain medicines, or animal dander. Your body responds with symptoms such as a rash, hives, runny nose, itchy eyes, vomiting, or wheezing. The substance that causes an allergic reaction is called an allergen . What causes an allergy? It isn't clear why some people develop allergies. People who have family members that have allergies are also more likely to develop allergies. Allergens can cause an allergic reaction by coming into contact with: -the skin or mucus membranes, such as the nose or eyes -stomach (swallowing the substance) -lungs (breathing in the substance) -bloodstream (injecting the substance) How does my health care provider know that I've had an allergic reaction? The signs and symptoms can range from a runny nose and sneezing to a severe, life-threatening situation. Symptoms vary from person to person, and can develop immediately or over several hours. Signs and symptoms of a minor reaction include: -rash or hives -itching -runny nose and sneezing -watery eyes Signs of a moderate to severe reaction include: -anxiety -abdominal pain, nausea, or vomiting -diarrhea -fast heartbeat or chest tightness -itching around the mouth or throat -swelling of the face, lips, and tongue -trouble swallowing -wheezing or trouble breathing - anaphylactic shock - sudden, severe swelling of the mouth and throat and trouble breathing. This is a medical emergency and needs to be treated immediately with an injection. If you have had this type of reaction, your health care provider will give you an epinephrine kit to keep with you, and teach you how to use it. What tests may be done? -a physical exam -lab tests or allergy tests -pulse oximetry: This device measures how much oxygen is moving through your blood. How can allergic reactions affect my health? What are the complications or risks? Having an allergy can increase your risk of developing other health conditions, such as: -asthma -ear infections, sinus infections, or lung infections -eczema - rough, scaly patches on your skin -anaphylactic reaction - if you have severe allergies, you are more at risk of developing this medical emergency What is the usual treatment? Treatment depends on the severity of the allergic reaction. Medicine is given to reduce your body's reaction to the allergen and to relieve your symptoms. For a severe reaction, a medicine called epinephrine is given by injection to quickly reduce your symptoms. To avoid an allergic reaction in the future, you need to identify and avoid the substance that caused the reaction. You may need to have skin tests to discover the allergen. You may also need to avoid certain substances for a length of time to find out if it was causing your symptoms. Please follow these instructions: -Avoid areas or substances that trigger your allergy. Some allergic reactions are made worse by temperature extremes (such as being extremely hot or extremely cold) or emotional stress. -Keep a diary to track what causes and worsens your allergy symptoms. -If you've had a severe reaction: -Wear a medical alert bracelet that states your allergy. -Carry an epinephrine injection device with you at all times. Contact your health care provider immediately or call 911 if you have an anaphylactic reaction: trouble breathing and sudden, severe swelling of your mouth, tongue, and throat. Contact your health care provider as soon as possible if you have any new or bothersome symptoms. ---- MEDICATION INFORMATION: Take your medicines as prescribed. If you do not understand any of your medicines, please ask questions. If you think you may not be able to fiber picker your medicine, please let us know so we can look at other options. -Included are any known ACTIVE Medicines. Please review this list to make sure it is accurate, if this list does not match the current medications you are taking please follow-up with your Primary Care Team to have your Medication List reviewed. -Your medication list includes any medications that were recently prescribed but not yet filled by the Pharmacy (PENDING Medicines). -Medications listed as (HOLD) are an active prescription that will not be filled until pharmacy resolves the HOLD status. Contact your VA pharmacy when you need more of this medication. Pending Medications OMEPRAZOLE 40MG EC CAP \ Sig: TAKE ONE CAPSULE BY MOUTH EVERY DAY\Indication: FOR ACID REFLUX OXYCODONE HCL 10MG TAB \ Sig: TAKE ONE TABLET BY MOUTH EVERY SIX HOURS NEEDED\Indication: FOR PAIN PREDNISONE 20MG TAB \ Sig: TAKE TWO TABLETS BY MOUTH EVERY DAY\Indication: FOR INFLAMMATION Active Medications [none] Medications Medications in the last 90 days [none] Discontinued Medications Medications discontinued in the last 90 days [none] If you have new symptoms, feel worse, or are not getting better as discussed, call to discuss your health questions and arrange for follow-up care, or return to the Emergency Room IF YOU ARE EXPERIENCING A MEDICAL EMERGENCY CALL 911 OR GO TO THE NEAREST EMERGENCY ROOM // KOFI DURHAM Attending Physician Signed: 08/06/2024 02:14 KOFI DURHAM [facility]
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
--- NOTE | 2024-08-06 07:57 | PC.NURSE ---
Attempted to medicate patient with 10mg oxycodone, patient took pills in hand then stated he wanted to take them later. Informed he needs to take pills now or give back to this RN. Patient handed pills back, stated he didnt want oxy until he was ready to leave
[2024-08-06] MEDS: oxyCODONE HCl Immed Release 5 MG TABLET 10 MG PO (08:07)
--- NOTE | 2024-08-06 08:09 | PC.NURSE ---
PA at bedside to review with patient that knee does not need draining and that she will not be prescribing narcotics to go home with. Patient argumentative, asking same questions multiple times despite provider answering his questions. Patient took oxycodone. Then stating that he asked for an MD and we did not give him one. Explained to patient that there are currently two providers in the ED, neither of which are . Patient aware that PA is asking MD to come speak with him
[2024-08-06 08:37] VITALS: BP 130/85; PULSE 88; RESP 18; TEMP 37; O2SAT 99
== END 2024-08-06 08:38 | disposition home or self-care (01) ==
PROVIDERS: Emergency Provider Emergency Medicine
DX: G89.29 Other chronic pain (principal); M25.561 Pain in right knee; R00.0 Tachycardia, unspecified; Z79.891 Long term (current) use of opiate analgesic
CPT/HCPCS: 99283